=== PATIENT | male | born 1985 | race Caucasian/White ===

== ENCOUNTER 2017-01-04 05:17 | Emergency (ER) | payer BC ==
--- NOTE | ~2017-01-04 | CR253 ---
[facility] A Service of [facility] RADIOLOGY TEXT RESULTS PATIENT: PRECIOUS MONTES LOCATION: SED : [birth year] UNIT #: [id number] AGE: [address]: Jack Boothe MD SEX: M ORDER DR: [id number] [address] [address] [id number] E MR#: [id number] Acc #: [id number] NAME: PRECIOUS MONTES : 1985 SEX: M STUDY DATE/TIME: 01/04/2017 5:17 UNIT: SED ROOM: STUDY DESCRIPTION: CR Tibia and Fibula 2 Views Rt Attending Physician: Jack Boothe M.D. Ordering Physician: Jack Boothe M.D. Primary Care Physician: No Primary Care Physician MEDICAL IMAGING REPORT This report is preliminary unless electronic signature is present. EXAM Tib-fib on the right 01/04/2017 INDICATIONS Trauma, cut to the mid tib-fib, laceration, cut by a stick in a ditch. TECHNIQUE 2 views of the right tib-fib. COMPARISON No comparisons. FINDINGS There is a laceration injury of the anterior tib-fib at its mid aspect. There is overlying soft tissue, bandage artifact and subcutaneous air. No underlying fracture. There are at least 3 tiny retained opaque foreign bodies present, the largest measures up to about 5-6 mm and the second largest measures about 3-4 mm. These form an inverted V on the lateral projection. There is a tiny third additional retained opaque foreign body measuring only about 1-2 mm just anterior to the mid shaft of the tibia. Correlate with physical exam findings. No acute fracture. IMPRESSION Laceration injury with retained opaque foreign bodies anterior to the mid shaft tibia on the lateral projection as described. Soft tissue swelling but no acute fracture. Dictated by... Matt Dc M.D. THIS IS AN ELECTRONICALLY VERIFIED REPORT Matt Dc M.D. at 01/04/2017 9:57 PM [facility] A Service of [facility] RADIOLOGY TEXT RESULTS PATIENT: PRECIOUS MONTES LOCATION: SED : [birth year] UNIT #: [id number] AGE: [address]: Jack Boothe MD SEX: M ORDER DR: BAIRON/mikhail TD: 01/04/2017 15:39 JOB #: [id number] MEDICAL IMAGING REPORT Page 1 of 1
[~2017-01-04 05:17] MED LIST: KEFLEX PO; NO MEDICATIONS
== END 2017-01-04 07:45 | disposition hospice, home (50) ==
LOC: SED 05:17
DX: S81.811A Laceration without foreign body, right lower leg, initial encounter (principal); Z79.899 Other long term (current) drug therapy; W45.8XXA Other foreign body or object entering through skin, initial encounter; Y92.89 Other specified places as the place of occurrence of the external cause
CPT/HCPCS: 73590; 99283